=== PATIENT | female | born 1965 | race American Indian/Alaskan Native ===

== ENCOUNTER 2017-03-24 23:28 | Inpatient (IN) | payer OTHER ==
[2017-03-25 00:46] LABS: Basophils % (Auto) 0.7 % (0.0-1.8); Eosinophils % (Auto) 1.9 % (0.0-4.3); Hematocrit 33.3 % (30.3-42.9); Hemoglobin 10.8 gm/dl (10.1-14.3); Mean Corpuscular HGB Conc 32 % (30-34); Mean Corpuscular Hemoglobin 28 pg (28-32); Mean Corpuscular Volume 86 fl (79-97); Platelet Count 237 K/mm3 (140-440); Red Blood Count 3.88 M/mm3 (3.65-5.03); Red Cell Distribution Width 12.7 % (13.2-15.2); White Blood Count 8.4 K/mm3 (4.5-11.0)
[2017-03-25 01:08] LABS: Anion Gap 18 mmol/L; Blood Urea Nitrogen 24 mg/dL (7-17); Calcium 8.7 mg/dL (8.4-10.2); Carbon Dioxide 26 mmol/L (22-30); Glucose 170 mg/dL (65-100); Potassium 3.6 mmol/L (3.6-5.0); Sodium 138 mmol/L (137-145)
[2017-03-25 02:37] LABS: Bilirubin,Urine NEG (Negative); Blood,Urine NEG (Negative); Ketones,Urine NEG (Negative); Leukocyte Esterase,Urine NEG (Negative); Mucus,Urine FEW /HPF; Nitrite,Urine NEG (Negative); Protein,Urine <15 mg/dL mg/dL (Negative); Urobilinogen,Urine < 2.0 mg/dL (<2.0)
[2017-03-25] MEDS ORDERED: NACL 0.9% 1000 ML 1,000 ML IV ONE (10:55)
[2017-03-25] MEDS ORDERED: ASPIRIN PO ONE (10:55)
--- NOTE | 2017-03-25 10:56 | Emergency Department Report ---
ED Chest Pain HPI - General Chief Complaint: Chest Pain Stated Complaint: CHEST PAIN/HIGH BP Time Seen by Provider: 03/25/17 10:32 Source: patient Mode of arrival: Ambulatory Limitations: No Limitations - History of Present Illness MD Complaint: chest pain -: Gradual Onset: during rest Pain Location: substernal Pain Radiation: none Severity: mild Severity scale (0 -10): 2 Quality: tightness Consistency: intermittent Improves With: nothing re: denies: nausea, vomting, diaphoresis, sense of impending doom (feeling dizzy and lightheaded) Other Symptoms: denies: cough, fever, syncope, rash, acid taste in mouth, leg swelling, palpitations, burping - Related Data On Oral Contraceptives: No Allergies Allergy/AdvReac Type Severity Reaction Status Date / Time lisinopril Allergy Shortness Verified 03/25/17 00:09 of Breath HELADIO score - Heladio Score Age > 65: (0) No Aspirin use within the Past 7 Days: (0) No 3 or more CAD Risk Factors: (0) No 2 or more Angina events in past 24 hrs: (0) No Known CAD with more than 50% Stenosis: (0) No Elevated Cardiac Markers: (0) No ST Deviation Greater than 0.5mm: (1) Yes HELADIO Score: 1 ED Review of Systems ROS: Stated complaint: CHEST PAIN/HIGH BP Other details as noted in HPI Comment: All other systems reviewed and negative ED Past Medical Hx - Past Medical History Previous Medical History?: Yes Hx Hypertension: Yes Hx Diabetes: Yes - Surgical History Past Surgical History?: Yes Additional Surgical History: left knee replacement, tubaligation - Social History Smoking Status: Never Smoker Substance Use Type: None ED Physical Exam - General Limitations: No Limitations General appearance: alert, in no apparent distress - Head Head exam: Present: atraumatic, normocephalic - Eye Eye exam: Present: normal appearance - ENT ENT exam: Present: mucous membranes moist - Neck Neck exam: Present: normal inspection - Respiratory Respiratory exam: Present: normal lung sounds bilaterally. Absent: respiratory distress - Cardiovascular Cardiovascular Exam: Present: regular rate, normal rhythm. Absent: systolic murmur, diastolic murmur, rubs, gallop - GI/Abdominal GI/Abdominal exam: Present: soft, normal bowel sounds - Extremities Exam Extremities exam: Present: normal inspection - Back Exam Back exam: Present: normal inspection - Neurological Exam Neurological exam: Present: alert, oriented X3 - Psychiatric Psychiatric exam: Present: normal affect, normal mood - Skin Skin exam: Present: warm, dry, intact, normal color. Absent: rash ED Course Vital Signs 03/25/17 03/25/17 03/25/17 00:10 04:14 07:49 Temperature 98.1 F 98.1 F Pulse Rate 80 65 Respiratory 16 14 Rate Blood Pressure 171/82 159/93 148/79 O2 Sat by Pulse 97 100 Oximetry 03/25/17 03/25/17 03/25/17 07:50 08:00 08:10 Temperature Pulse Rate 64 64 60 Respiratory 24 17 19 Rate Blood Pressure 148/79 148/79 130/50 O2 Sat by Pulse 99 98 99 Oximetry 03/25/17 03/25/17 03/25/17 08:20 08:29 08:30 Temperature Pulse Rate 62 Respiratory 18 17 Rate Blood Pressure 130/50 130/50 O2 Sat by Pulse 100 99 Oximetry 03/25/17 03/25/17 03/25/17 08:40 08:50 09:00 Temperature Pulse Rate 65 61 66 Respiratory 20 19 18 Rate Blood Pressure 130/50 130/50 134/76 O2 Sat by Pulse 97 100 100 Oximetry 03/25/17 03/25/17 03/25/17 09:10 09:20 09:30 Temperature Pulse Rate 63 62 64 Respiratory 17 17 18 Rate Blood Pressure 134/76 134/76 134/76 O2 Sat by Pulse 99 98 98 Oximetry 03/25/17 03/25/17 03/25/17 09:40 09:50 10:00 Temperature Pulse Rate 63 63 63 Respiratory 18 14 17 Rate Blood Pressure 134/76 134/76 135/73 O2 Sat by Pulse 97 98 98 Oximetry 03/25/17 03/25/17 03/25/17 10:10 10:20 10:30 Temperature Pulse Rate 66 64 94 H Respiratory 21 15 14 Rate Blood Pressure 135/73 135/73 135/73 O2 Sat by Pulse 99 99 99 Oximetry 03/25/17 03/25/17 10:40 11:44 Temperature Pulse Rate 68 67 Respiratory 21 Rate Blood Pressure 135/73 171/57 O2 Sat by Pulse 99 Oximetry ED Medical Decision Making - Lab Data Result diagrams: 03/25/17 00:35 03/25/17 00:35 - EKG Data When compared to previous EKG there are: changes noted Interpretation: nonspecific ST-T wave demar - Radiology Data Radiology results: report reviewed, image reviewed - Medical Decision Making cardiology paged at 1045 pm cardiology recommeds to admit the patient and do stress in the morning , she is pain free at this time and metroprolol given here . will admit and also discuss with hospitalist and agree with plan Critical care attestation.: If time is entered above; I have spent that time in minutes in the direct care of this critically ill patient, excluding procedure time. ED Disposition Clinical Impression: Chest pain Disposition: OP ADMITTED IP TO THIS HOSP Is pt being admited?: Yes Does the pt Need Aspirin: No Condition: Good Referrals: SASHA PRECIADO [Other] - 3-5 Days Time of Disposition: 12:43
[2017-03-25] MEDS ORDERED: LOPRESSOR PO ONE (11:32)
--- NOTE | 2017-03-25 12:13 | XRay Report ---
AP CHEST: HISTORY: chest pain AP view of the chest demonstrates a normal mediastinal and cardiac contour with clear lungs and normal bony and soft tissue structures. IMPRESSION: Unremarkable AP chest.
--- NOTE | 2017-03-25 12:24 | History and Physical Report ---
History of Present Illness Chief complaint: My chest hurts History of present illness: 51 YO Female with HTN, DM,MO, metabolic Syndrome presents to ED for evaluation. Pt states that she has been experiencing pain in her chest for the past two days , with worsening symptoms for the past 4 hours. Pain in 5/10, associated with shortness of breath, midsternal, constant, aching in nature with radiation to left shoulder, not exacerbated with exertion, or relieved with rest. Pt denies fever, chills, Palpitations, Syncope, hemoptysis, prolonged immobility/travel, individual/family history of DVT/PE, leg swelling, calf pain, productive cough, hemoptysis, or recent ill contacts. Past History Past Medical History: diabetes, hypertension Past Surgical History: total knee replacement, Other (tubal ligation) Social history: single. denies: smoking, alcohol abuse, prescription drug abuse Family history: diabetes, hypertension Medications and Allergies Allergies Allergy/AdvReac Type Severity Reaction Status Date / Time lisinopril Allergy Shortness Verified 03/25/17 00:09 of Breath Home Medications Medication Instructions Recorded Confirmed Last Taken Type Carvedilol [Coreg] 6.25 mg PO BID 03/25/17 03/25/17 03/24/17 History Meloxicam [Mobic] 7.5 mg PO QDAY 03/25/17 03/25/17 03/24/17 History One-Daily Xlsyn-[id number] Tab 1 tab PO DAILY 03/25/17 03/25/17 03/24/17 History Triamter/Hctz 37.5-25 mg 1 tab PO QDAY 03/25/17 03/25/17 03/24/17 History [Maxzide-25] Vit D3 1 tab PO DAILY 03/25/17 03/25/17 03/24/17 History Vitamin B Complex & Vit C No.4 150 mg PO DAILY 03/25/17 03/25/17 03/24/17 History [Super B Complex] Review of Systems All systems: negative Cardiovascular: chest pain Exam - Constitutional Vitals: Temp Pulse Resp BP Pulse Ox 98.1 F 67 21 171/57 99 03/25/17 04:14 03/25/17 11:44 03/25/17 10:40 03/25/17 11:44 03/25/17 10:40 General appearance: Present: obese - EENT Eyes: Present: PERRL ENT: hearing intact, clear oral mucosa - Neck Neck: Present: supple, normal ROM - Respiratory Respiratory effort: normal Respiratory: bilateral: diminished - Cardiovascular Heart Sounds: Present: S1 & S2. Absent: rub, click - Extremities Extremities: pulses symmetrical, No edema Peripheral Pulses: within normal limits - Abdominal General gastrointestinal: Present: soft, non-tender, non-distended, normal bowel sounds Female genitourinary: Present: normal - Integumentary Integumentary: Present: clear, warm, dry - Musculoskeletal Musculoskeletal: gait normal, strength equal bilaterally - Psychiatric Psychiatric: appropriate mood/affect, intact judgment & insight - Neurologic Neurologic: CNII-XII intact, moves all extremities Results - Labs CBC & Chem 7: 03/25/17 00:35 03/25/17 00:35 Labs: Abnormal lab results 03/25/17 03/25/17 Range/Units 00:35 00:35 RDW 12.7 L (13.2-15.2) % BUN 24 H (7-17) mg/dL Creatinine 0.6 L (0.7-1.2) mg/dL Glucose 170 H (65-100) mg/dL Assessment and Plan - Patient Problems (1) NSTEMI (non-ST elevated myocardial infarction) Current Visit: Yes Status: Acute Plan to address problem: Cardiology consulted in ED, Serial cardiac enzymes, ekg, telemetry, echo, stress test in am. (2) Accelerated hypertension Current Visit: Yes Status: Acute Plan to address problem: Monitor bp q shift, resume home medication. 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
[2017-03-25] MEDS ORDERED: ZOFRAN IV PRN (12:29)
[2017-03-25] MEDS ORDERED: TYLENOL PO PRN (12:29)
[2017-03-25] MEDS ORDERED: DUONEB 0.5 MG-3 MG/3 ML SOLN IH PRN (12:29)
[2017-03-25] MEDS ORDERED: D50W (25GM) IV PRN (12:29)
[2017-03-25] MEDS ORDERED: DULCOLAX PR PRN (12:29)
[2017-03-25] MEDS ORDERED: MILK OF MAGNESIA PO PRN (12:29)
[2017-03-25] MEDS ORDERED: PROVENTIL IH PRN (12:35)
--- NOTE | 2017-03-25 12:40 | Admit Criteria Form ---
Admission Criteria Documentation: CARDIOLOGY GRG Clinical Indications for Admission to Inpatient Care ( Place 'X' for any and all applicable criteria): Hospital admission is needed for appropriate care of the patient because of ANY ONE of the following (1): [ ] I. Hemodynamic instability as indicated by ALL of the following (1)(2)(3) (4)(5) [ ]a) Vital signs or other findings not as expected for chronic patient condition or baseline [ ]b) Instability indicated by ANY ONE of the following: [ ]i) Hypotension [ ]ii) Symptomatic Tachycardia unresponsive to treatment ( e.g., analgesia, fluids, sedation as indicated) [ ]iii) Inadequate perfusion indicated by ANY ONE of the following: [ ] 1) Lactic acidosis (> 2 mmol/L) [ ] 2) New abnormal capillary refill (> 3 seconds) [ ] 3) Reduced urine output [ ] 4) New altered mental status [ ]iv) Orthostatic vital sign changes unresponsive to treatment (e.g., fluids) [ ]v) IV inotropic or vasopressor medication required to maintain adequate blood pressure or perfusion [ ] II. Severe heart failure as indicated by ANY ONE of the following(17)(18) [ ]a) Respiratory distress [ ]b) Hypotension [ ]c) Anasarca (refractory to outpatient therapy) [ ]d) Cardiac arrhythmias of immediate concern [ ]e) Myocardial ischemia [ ] III. Cardiac arrhythmias or findings of immediate concern indicated by ANY ONE of the following (19)(20): [ ] a) Heart rhythms that are inherently dangerous or unstable indicated by ANY ONE of the following (21)(22)(23): [ ] i) Resuscitated ventricular fibrillation or cardiac arrest [ ] ii) Ventricular escape rhythm [ ] iii) Sustained ventricular tachycardia (30 seconds or more of ventricular rhythm at greater than 100 beats per minute) [ ] iv) Nonsustained ventricular tachycardia and ANY ONE of the following: [ ] 1) Suspected cardiac ischemia as cause or consequence of ventricular tachycardia [ ] 2) In setting of acute myocarditis [ ] b) Unstable cardiac conduction defects indicated by ANY ONE of the following(23)(24)(25) [ ] i) Type II second-degree atrioventricular block [ ]ii) Third-degree atrioventricular block [ ]iii) New-onset left bundle branch block with suspected myocardial ischemia [ ]c) Any heart rhythm and ANY ONE of the following (21)(22)(26)(27) (28) [ ] i) Continuous long-term ECG monitoring needed (e.g., initiation of drug requiring monitoring for more than 24 hours) [ ] ii) Patient has automatic implanted cardioverter defibrillator that is repeatedly firing, malfunctioning, or in need of immediate adjustment of settings beyond the scope of ambulatory or observation care [ ]d) Heart rhythms of concern due to ANY ONE of the following: [ ] i) Hypotension [ ] ii) Respiratory distress [ ] iii) Association with other significant symptoms (e.g., bradycardia with syncope or ongoing dizziness, supraventricular tachycardia with chest pain (14)(15)(17) [ ] IV. Monitoring for cardiac contusion beyond the scope of observation care needed [A](30)(31)(32) [ ] V. Surgical or device complication (e.g., valve replacement complication , pacemaker dysfunction) (35)(41)(44)(45)(46) [ ] . Inpatient palliative care needed. [B](49) Also use Inpatient Palliative Care Criteria [ ] VII. Nonbacterial thrombotic (marantic) endocarditis (36)(43)(47)(48) [ X] VIII. Cardiology condition, symptom, or finding for which emergency and observation care has failed or are not considered appropriate. [ ] IX. Acute valvular disease requiring inpatient as indicated by ANY ONE of the following (41) [ ]a) Acute valvular regurgitation (42) [ ]b) Noninfectious valvulitis (43) [ ]c) Obstructive valve thrombosis [ ]d) Paravalvular leak [ ]e) Other significant valvular disorder remaining after emergency or observation level of care (as appropriate) [ ]X. Pericardial disease requiring inpatient treatment as indicated by ANY ONE of the following (33)(34)(35)(36)(37) [ ]a) Suspected tamponade (38)(39)(40) [ ]b) Hemopericardium [ ]c) Other significant pericardial disorder remaining after emergency or observation level of care (as appropriate) [ ] XI. Cardiac ischemia beyond scope of emergency and observation care. [ ] XII. Hypertension requiring inpatient treatment as indicated by ANY ONE of the following (6)(7)(8) [ ]a) SBP greater than 220 mm Hg or DBP greater than 120 mmHg despite treatment [ ]b) SBP greater than 140 mm Hg or DBP greater than 100 mm Hg with evidence of acute end organ damage as indicated by ANY ONE of the following [ ] i) Altered mental status [ ] ii) Acute renal failure as indicated by new onset of ANY ONE of the following (9)(10)(11)(12)(13) [ ]1) 3-fold rise in serum creatinine from baseline [ ]2) Serum creatinine greater than 4 mg/dL ( 354 micromoles/L) with acute rise greater than 0.5 mg/dL (44.2 micromoles/L) [ ]3) Reduction of more than 75% in estimated glomerular filtration rate from baseline [ ]4) Estimated glomerular filtration rate less than 35 mL/min/1.73m2 (0.59 mL/sec/1.73m2) in child up to 18 years of age [ ]5) Cessation of urine output indicated by ALL of the following [ ]A. Adequate volume status [ ]B. Inadequate urine output as indicated by ANY ONE of the following [ ]a. Urine output less than 0.3 mL/kg/hr for 24 hours [ ]b. Anuria (urine output less than 0.1 mL/kg/hr) for 12 hours [ ] iii) Aortic dissection [ ] iv) Myocardial Ischemia [ ] v) Left ventricular heart failure [ ]vi) Retinal Hemorrhage [ ]vii) Other significant finding [ ]c) Hypertension in child requiring inpatient treatment as indicated by ALL of the following(14)(15)(16) [ ] i) Outpatient treatment not effective, not available, or not appropriate [ ]ii) SBP or DBP greater than 95th percentile for age [ ]iii) Evidence of acute end organ damage as indicated by ANY ONE of the following [ ]1) Altered mental status [ ]2) Acute renal failure as indicated by new onset of ANY ONE of the following(9)(10)(11)(12)(13) [ ]A. 3-fold rise in serum creatinine from baseline [ ]B. Serum creatinine greater than 4 mg/dL (354 micromoles/L) with acute rise greater than 0.5 mg/dL (44.2 micromoles/L) [ ]C. Reduction of more than 75% in estimated glomerular filtration rate from baseline [ ]D. Estimated glomerular filtration rate less than 35 mL/min/1.73m2 (0.59 mL/sec/1.73m2) in child up to 18 years of age [ ]E. Cessation of urine output indicated by ALL of the following [ ]a. Adequate volume status [ ]b. Inadequate urine output as indicated by ANY ONE of the following [ ]i) Urine output less than 0.3 mL/kg/hr for 24 hours [ ]ii) Anuria ( urine output less than 0.1 mL/kg/hr) for 12 hours [ ]3) Severe headache [ ]4) Visual disturbance [ ]5) Retinal hemorrhage [ ]6) Other significant finding [ ]XIII. Complications of transplanted heart indicated by ANY ONE of the following(61): [ ]a) Acute graft rejection requiring inpatient management (eg, intravenous immunosuppression)(62)(63) [ ]b) Acute graft heart failure indicated by ANY ONE of the following(64): [ ]i) Hemodynamic instability [ ]ii) Cardiac arrhythmias of immediate concern [ ]iii) Pulmonary edema that is very severe (eg, mechanical ventilation needed, imminent or likely, need for 100% oxygen to keep oxygen saturation above 90%) [ ]iv) Pulmonary edema that is persistent as indicated by ALL of the following: [ ]1) New need for oxygen therapy to keep oxygen saturation above 90% (or increased FiO2 need from baseline) [ ]2) Has not improved sufficiently with emergency department or observation care IV diuretics or other heart failure treatments[E] [ ]v) Altered mental status that is severe or persistent [ ]vi) Increased creatinine (new on laboratory test) with reduction of more than 50% in estimated glomerular filtration rate from baseline [ ]vii) Progressively (ongoing) rising creatinine (known from past laboratory test) with reduction of more than 25% in estimated glomerular filtration rate from baseline [ ]viii) Acute renal failure [ ]ix) Acute peripheral ischemia (eg, examination shows pulseless, cool, mottled, or cyanotic extremity) [ ]x) Pulmonary artery catheter monitoring needed [ ]xi) Other sign or symptom of heart failure requiring inpatient treatment (ie, too severe or not responsive to outpatient and observation care treatment) [ ]c) Infection requiring inpatient management (eg, Hemodynamic instability, need for intravenous antimicrobial treatment)(66)(67)(68)(69)(70) [ ]d) Cardiac allograft vasculopathy requiring inpatient management ( eg evidence of cardiac ischemia)(71) [ ]e) Other complication of transplanted heart (eg, stroke, severe pulmonary hypertension, severe valvular dysfunction) requiring inpatient management(72) The original [facility] content created by [facility] has been revised. The portions of the content which have been revised are identified through the use of italic text or in bold, and [facility] has neither reviewed nor approved the modified material. All other unmodified content is copyright [facility] [employer]. Please see references footnoted in the original [facility] edition 2016 Admission Criteria Met: Yes
[2017-03-25] MEDS ORDERED: LASIX IV ONE (13:00)
[2017-03-25] MEDS ORDERED: LASIX ONE (13:34)
[2017-03-25] MEDS ORDERED: PROTONIX PO ONE (13:34)
[2017-03-25] MEDS: PROTONIX PO SCH (13:42)
--- NOTE | 2017-03-25 13:44 | Consultation ---
History of Present Illness Consult date: 03/25/17 Requesting physician: CAPRI CAPONE Consult reason: chest pain History of present illness: The patient is a 51-year-old female with a past medical history significant for hypertension, prediabetes, OA s/p left TKR in 2013 and obesity. She is previously unknown to our practice. She presented with complaints of chest pain , shortness of breath, dizziness (room spinning), high blood pressure, right- sided headache, and right eye pain. She reports that the symptoms began yesterday. At the onset of her symptoms, she took her blood pressure on a home blood pressure monitor and noted her SBP to be in 200s. She describes her chest pain as nonexertional, midsternal, constant aching pain which began yesterday evening and has remained intermittently present. The pain intermittently radiates into her left shoulder and down her left arm. She denies any precipitating, aggravating, or alleviating factors. She denies any palpitations , nausea, vomiting, diaphoresis, or syncope. She reports compliance with her home blood pressure medications, which include Coreg and Maxide. She states that she underwent stress test and echocardiogram per her PCP in 3-4 years ago and believes the results of those studies were normal. Past History Past Medical History: diabetes, hypertension Past Surgical History: total knee replacement Social history: denies: smoking, alcohol abuse, prescription drug abuse Family history: CAD Medications and Allergies Allergies Allergy/AdvReac Type Severity Reaction Status Date / Time lisinopril Allergy Shortness Verified 03/25/17 00:09 of Breath Home Medications Medication Instructions Recorded Confirmed Last Taken Type Carvedilol [Coreg] 6.25 mg PO BID 03/25/17 03/25/17 03/24/17 History Meloxicam [Mobic] 7.5 mg PO QDAY 03/25/17 03/25/17 03/24/17 History One-Daily Bfrmj-Ldy-Cpru Tab 1 tab PO DAILY 03/25/17 03/25/17 03/24/17 History Triamter/Hctz 37.5-25 mg 1 tab PO QDAY 03/25/17 03/25/17 03/24/17 History [Maxzide-25] Vit D3 1 tab PO DAILY 03/25/17 03/24/17 History Vitamin B Complex & Vit C No.4 150 mg PO DAILY 03/25/17 03/25/17 03/24/17 History [Super B Complex] Active Meds: Active Medications Acetaminophen (Tylenol) 650 mg PO Q4H PRN PRN Reason: Pain MILD(1-3)/Fever >100.5/MICHAELS Albuterol (Proventil) 2.5 mg IH Q4HRT PRN PRN Reason: Shortness Of Breath Bisacodyl (Dulcolax) 10 mg AK QDAY PRN PRN Reason: Constipation unrelieved by MOM Dextrose (D50w (25gm)) 50 ml IV PRN PRN PRN Reason: Hypoglycemia Insulin Aspart (Novolog) 0 units SUB-Q ACHS ASHISH PRN Reason: Protocol Magnesium Hydroxide (Milk Of Magnesia) 30 ml PO Q4H PRN PRN Reason: Constipation Metoprolol Tartrate (Lopressor) 25 mg PO BID [facility] Ondansetron HCl (Zofran) 4 mg IV Q8H PRN PRN Reason: N/V unrelieved by Reglan Pantoprazole Sodium (Protonix) 40 mg PO QDAY [facility] Last Admin: 03/25/17 13:42 Dose: 40 mg Review of Systems Constitutional: no weight loss, no weight gain, no fever, no chills, no sweats Eyes: right: other (pain ) Ears, nose, mouth and throat: no ear pain, no nose pain, no sinus pressure, no sinus pain Cardiovascular: chest pain, lightheadedness, shortness of breath, dyspnea on exertion, high blood pressure, leg edema, no orthopnea, no palpitations, no rapid/irregular heart beat, no edema, no syncope Respiratory: shortness of breath, dyspnea on exertion, no cough, no congestion, no wheezing, no pain Gastrointestinal: no abdominal pain, no nausea, no vomiting, no diarrhea, no constipation, no change in bowel habits Genitourinary Female: no pelvic pain, no flank pain, no dysuria, no urinary frequency Musculoskeletal: arm numbness/tingling (LUE), no neck stiffness, no neck pain, no shooting arm pain, no low back pain, no shooting leg pain, no leg numbness/ tingling, no redness of joints Integumentary: no rash, no pruritis, no redness, no sores, no wounds Neurological: headaches (right-sided ), no head injury, no paralysis, no weakness, no parathesias, no numbness, no tingling, no seizures, no syncope, no lack of coordination, no change in speech, no change in mentation, no confusion , no memory loss Psychiatric: no anxiety Endocrine: no cold intolerance, no heat intolerance Hematologic/Lymphatic: no easy bruising, no easy bleeding, no lymphadenopathy Allergic/Immunologic: no urticaria, no wheezing, no persistent infections Physical Examination Vital Signs Temp Pulse Resp BP Pulse Ox 98.1 F 80 16 171/82 97 03/25/17 00:10 03/25/17 00:10 03/25/17 00:10 03/25/17 00:10 03/25/17 00:10 General appearance: no acute distress HEENT: Positive: PERRL, Normocephaly, Mucus Membranes Moist Neck: Positive: neck supple, trachea midline Cardiac: Positive: Reg Rate and Rhythm, S1/S2 Lungs: Positive: Normal Exam, clear to auscultation, Normal Breath Sounds Neuro: Positive: Grossly Intact, Cranial Nerve 2-12 Intact Abdomen: Positive: Unremarkable, Soft, Active Bowel Sounds Musculoskeletal: No Fluid Collection, No Pain, Normal Range of Motion Extremities: Present: upper extr. pulses, lower extr. pulses, edema (trace RLE ) , +1 Edema (LLE) Results 03/25/17 00:35 03/25/17 00:35 - Imaging and Cardiology Echo: pending EKG: report reviewed, image reviewed EKG interpretations - Telemetry EKG Rhythm: Sinus Rhythm - EKG Sinus rhythms and dysrhythmias: sinus rhythm Chamber hypertrophy or enlargement: left ventricular hypertro Repolarization changes or abnormalities: nonspecific abnormality, ST segment, and/or T wave Assessment and Plan Assessment: Chest pain, atypical - ECG with no acute ischemic changes; Troponins negative for AMI. Accelerated HTN Dyspnea / BLE edema - ? Acute heart failure Vertigo H/o pre-diabetes Obesity Plan: Obtain echo. Plan for lexiscan MPI stress test in AM. NPO after MN. Initiate lopressor, 25mg PO BID. Give IV lasix x 1 dose. Cont tele. Obtain pro-BNP. Obtain HgbA1C. Obtain fasting lipid panel in AM. Assessment and plan reviewed with pt at bedside. The patient has been seen in conjunction with Dr. Watkins who agrees with the assessment and plan of care.
[2017-03-25] MEDS: NOVOLOG SUB-Q SCH ×2 (17:52→21:06)
[2017-03-25] MEDS: LOPRESSOR PO SCH (21:04)
[2017-03-25] MEDS ORDERED: LOPRESSOR PO SCH (22:00)
[2017-03-26 06:28] LABS: Anion Gap 15 mmol/L; Blood Urea Nitrogen 11 mg/dL (7-17); Calcium 8.5 mg/dL (8.4-10.2); Carbon Dioxide 30 mmol/L (22-30); Chloride 100.8 mmol/L (98-107); Cholesterol 202 mg/dL (50-199); Glucose 174 mg/dL (65-100); HDL Cholesterol 70 mg/dL (40-59); LDL Cholesterol,Direct 106 mg/dL (50-130); Potassium 3.7 mmol/L (3.6-5.0); Sodium 142 mmol/L (137-145); Triglycerides 132 mg/dL (2-149)
[2017-03-26] MEDS: NOVOLOG SUB-Q SCH ×2 (07:30→11:35)
[2017-03-26] MEDS ORDERED: LEXISCAN IV ONE ×2 (08:54→09:00)
--- NOTE | 2017-03-26 10:43 | Progress Note ---
Assessment and Plan Assessment: Chest pain, atypical - currently resolved; ECG with no acute ischemic changes; Troponins negative for AMI; stress test negative for ischemia. Accelerated HTN - improved. Dyspnea / BLE edema - pro-BNP negative, CXR with NAF. Vertigo DM HLP Obesity Plan: S/p lexiscan MPI stress test this AM which was negative for ischemia. Await echo. Cont lopressor, 25mg PO BID. Recommend resuming home Maxzide at discharge. Initiate lipitor, 40mg daily. DM management per primary. Assessment and plan reviewed with pt at bedside. The patient has been seen in conjunction with Dr. Watkins who agrees with the assessment and plan of care. Subjective Date of service: 03/26/17 Principal diagnosis: chest pain Interval history: Pt seen and stress lab. Denies any cardiac complaints. Complains of right- sided headache. Vital signs stable, BPs improved this AM. Objective Last Vital Signs Temp 98.1 F 03/26/17 06:43 Pulse 69 03/26/17 06:43 Resp 18 03/26/17 06:43 BP 133/78 03/26/17 06:43 Pulse Ox 95 03/25/17 23:07 - Physical Examination General: No Apparent Distress HEENT: Positive: PERRL, Normocephaly, Mucus Membranes Moist Neck: Positive: neck supple, trachea midline Cardiac: Positive: Reg Rate and Rhythm, S1/S2 Lungs: Positive: Normal Exam, clear to auscultation, Normal Breath Sounds Neuro: Positive: Grossly Intact, Cranial Nerve 2-12 Intact Abdomen: Positive: Unremarkable, Soft, Active Bowel Sounds Musculoskeletal: No Fluid Collection, No Pain, Normal Range of Motion Extremities: Present: upper extr. pulses, lower extr. pulses, edema (trace RLE ) , +1 Edema (LLE) - Labs and Meds Lipids 03/26/17 Range/Units 05:20 Triglycerides 132 (2-149) mg/dL Cholesterol 202 H (50-199) mg/dL HDL Cholesterol 70 H (40-59) mg/dL Cholesterol/HDL Ratio 2.88 % Comprehensive Metabolic Panel 03/26/17 Range/Units 05:20 Sodium 142 (137-145) mmol/L Potassium 3.7 (3.6-5.0) mmol/L Chloride 100.8 (98-107) mmol/L Carbon Dioxide 30 (22-30) mmol/L BUN 11 (7-17) mg/dL Creatinine 0.5 L (0.7-1.2) mg/dL Glucose 174 H (65-100) mg/dL Calcium 8.5 (8.4-10.2) mg/dL - Imaging and Cardiology EKG: report reviewed, image reviewed Nuclear stress test: image reviewed Echo: pending - Telemetry EKG Rhythm: Sinus Rhythm - EKG Sinus rhythms and dysrhythmias: sinus rhythm Chamber hypertrophy or enlargement: left ventricular hypertro Repolarization changes or abnormalities: nonspecific abnormality, ST segment, and/or T wave
[2017-03-26] MEDS: PROTONIX PO SCH (10:55)
[2017-03-26] MEDS: LOPRESSOR PO SCH (10:55)
--- NOTE | 2017-03-26 14:15 | Discharge Summary ---
Providers - Providers Date of Admission: 03/25/17 12:29 Date of discharge: 03/26/17 Attending physician: BRIANA BROWN 03/25/17 12:33 Consult to Physician [CONS] Routine Consulting Provider: ABDI NELSON Reason For Exam: nstemi Place consult to:: cardiology Notified:: y Was contact made?: Yes If yes, spoke with:: derian apple Comment:: saw in er Hospitalization Condition: Good Hospital course: Patient is a 51-year-old woman with a history of hypertension, morbid obesity BMI 46.8 and prediabetes A1c's been under 7 but she's been monitor closely who presents with chest pain. Troponins are negative 3. Negative stress test. Seen by cardiology. New A1c is 7.2 with need to be started on diabetic medication and referred to PCP. CP, atypical, GERD related most likely: ppi -New onset diabetes mellitus type 2 with uncontrolled hyperglycemia -Hypertension -Morbid obesity, BMI 46.8: Counseling done Disposition: DISCHARGED TO HOME OR SELFCARE Time spent for discharge: 31 minutes Core Measure Documentation - Palliative Care Palliative Care/ Comfort Measures: Not Applicable - Core Measures Any of the following diagnoses?: none - VTE Discharge Requirements Deep Vein Thrombosis/Pulmonary Embolism Present on Admission: No Has pt received <5 days of overlap therapy or INR<2.0: No Anticoagulant overlap therapy prescribed at discharge: No Contraindication No Overlap Therapy order at DC: Not Indicated Exam - Physical Exam Narrative exam: GEN: WDWN, NAD, AWAKE, ALERT, ORIENTATED 3, BMI 46.8 HEENT: NCAT, PERRL, EOMI, OP CLEAR NECK: SUPPLE, NO THYROMEGALY, NO JVD, NO LAD CVS: RRR, NORMAL S1S2 LUNGS/CHEST: CTA B, NORMAL CHEST EXPANSION B, GOOD AIR ENTRY B ABD: SOFT NTND, GBS, NO REBOUND OR GUARDING EXT/SKIN: NO SIGNIFICANT EDEMA OR RASH MSK: FROM X 4 EXTREMITIES NEURO: CN 2-12 GROSSLY INTACT, NO new FOCAL DEFICITS PSY: CALM - Constitutional Vitals: Temp Pulse Resp BP Pulse Ox 98.1 F 89 18 146/81 95 03/26/17 06:43 03/26/17 09:01 03/26/17 06:43 03/26/17 09:01 03/25/17 23:07 Plan Activity: other (no strenous activites until cleared by PCP. ) Diet: low salt Special Instructions: record daily BP diary, record blood sugar diary Additional Instructions: Stop Maxzide (triameterene/HCT) start Losartan. Also, consider taking baby Aspirin daily instead of Mobic. Talk to you PCP. Follow up with: [facility] [Other] - 3-5 Days [facility] [Provider Group] - 7 Days Prescriptions: AtorvaSTATin [Lipitor] 40 mg PO QHS #30 tab Carvedilol [Coreg] 6.25 mg PO BID #60 tablet Losartan [Cozaar] 25 mg PO QDAY #30 tablet metFORMIN [Glucophage] 500 mg PO BID #60 tablet Pantoprazole [Protonix TAB] 40 mg PO QDAY #7 tablet
--- NOTE | 2017-03-26 16:54 | Event Note ---
Date: 03/26/17 Echo preliminary report shows EF 55-60%, mild LVH, trace-mild MR, trace TR. Currently stable cardiac status. Pt may discharge home from cardiology standpoint. Cont present cardiac medication regimen. Recommend follow up in our office with Vivian Christy NP, within 2 weeks of hospital discharge ([phone]). Anabella OCHOA NP / DR. MCNEILL
[2017-03-26 18:13] VITALS: BP 140/81
--- NOTE | 2017-03-27 03:36 | Treadmill Report ---
READING PHYSICIAN: German Davalos MD IMAGING PROTOCOL: The patient received 10 mCi of Technetium 99m Tetrofosmin for resting image and 28 mCi of Technetium 99m Tetrofosmin for stress imaging. The imaging for the whole procedure was completed 30-90 minutes following the initial injection of Technetium 99m tetrofosmin. The SPECT imaging in the 180 degree arc was performed in the right anterior oblique projection. Computerized reconstruction of the images was performed for analysis. IMAGING RESULTS: Normal cavity size from stress to rest. Normal distribution of radionuclide in the anterior, inferior, septal and apical regions. Gated SPECT, EF 55% with no wall motion abnormality. The patient infused Lexiscan with no EKG changes. SUMMARY: 1. Negative Lexiscan EKG. 2. Normal rest and stress myocardial perfusion scan. No significant stress ischemia. No wall motion abnormality. The Gated SPECT, EF 55%. REASON FOR STUDY: Chest pain. JOB# [id number] SUSANNAH/LEE
== END 2017-03-26 18:22 | disposition home or self-care (01) | DRG 392 ==
LOC: ED 23:28 → 4A 03-25 12:29
PROVIDERS: ADMIT Internal Medicine; ATTEND Internal Medicine
DX: K21.9 Gastro-esophageal reflux disease without esophagitis (principal); Z68.42 Body mass index [BMI] 45.0-49.9, adult; I10 Essential (primary) hypertension; E88.81 Metabolic syndrome and other insulin resistance; E66.01 Morbid (severe) obesity due to excess calories; E11.65 Type 2 diabetes mellitus with hyperglycemia; Z96.652 Presence of left artificial knee joint; M19.90 Unspecified osteoarthritis, unspecified site; R06.00 Dyspnea, unspecified; R60.0 Localized edema; R42 Dizziness and giddiness; E78.5 Hyperlipidemia, unspecified; Z71.3 Dietary counseling and surveillance; Z98.51 Tubal ligation status; Z82.49 Family history of ischemic heart disease and other diseases of the circulatory system; Z83.3 Family history of diabetes mellitus
CPT/HCPCS: 36415; 71010; 78452; 80048; 80061; 81001; 81025; 82962; 83036; 83880; 84484; 85025; 93005; 93010; 93017; 93306; 96361; 96374; A9502; J1940; J2785; J7030